=== PATIENT | female | born 1970 | race Caucasian/White ===

== ENCOUNTER 2024-03-25 05:30 | Day surgery (SDC) | payer OTHER ==
[2024-03-23 08:49] LABS: HEMATOCRIT 38.7 % (36.0-45.00); HEMOGLOBIN 13.6 g/dL (12.0-15.00); MEAN CELL VOLUME 92.3 fL (80.00-100.00); MEAN CORPUSCULAR HEMOGLOBIN 32.4 pg (27.00-32.0); MEAN CORPUSCULAR HGB CONC 35.1 g/dl (32.0-36.0); PLATELET COUNT 284 K/uL (150-450); RED BLOOD COUNT 4.19 M/uL (4.00-6.00); RED CELL DISTRIBUTION WIDTH 12.8 % (11.5-14.5)
[2024-03-23 08:50] LABS: URINE APPEARANCE Clear; URINE BILIRRUBIN Negative (NEGATIVE); URINE BLOOD Negative; URINE COLOR Yellow; URINE GLUCOSE Negative (NEGATIVE); URINE LEUKOCYTE Moderate; URINE NITRATE Negative; URINE PROTEIN Negative (NEGATIVE); URINE UROBILINOGEN 0.2 E.U./dl
[2024-03-23 08:54] LABS: URINE EPITHELIAL CELLS 38.7 uL (0.0-38.8); URINE RBC 14.6 uL (0.0-20.8)
[2024-03-23 09:04] LABS: INR 0.98; PARTIAL THROMBOPLASTIN TIME 31.8 SECONDS (22.0-34.0); PROTHROMBIN TIME 10.3 SECONDS (9.0-11.5)
[2024-03-23 09:15] LABS: BILIRUBIN TOTAL 1.44 mg/dL (0.3-1.2); CALCIUM 9.2 mg/dL (8.5-10.1); CREATININE SERUM 0.55 mg/dL (0.55-1.02); GFR 114.75; GLOBULINA 3.5 G/DL (2.4-3.5); POTASSIUM 4.76 mEq/L (3.5-5.1); TOTAL PROTEIN 7.5 gm/dL (6.4-8.2)
[~2024-03-25 05:30] MED LIST: ESCITALOPRAM 10MG; NABUMETONE500 MG PO; ROBITUSSIN COU PO; SYNTHROID88 MCG PO; TOPROL XL50 M1; TRAMADOL HCL50 MG PO
[2024-03-25] MEDS ORDERED: CEFAZOLIN SODIUM 1,000 MG VIAL ONE (08:24)
[2024-03-25] MEDS ORDERED: POVIDONE-IODINE 118 ML BOTT TOP ONE (08:43)
[2024-03-25] MEDS ORDERED: POVIDONE-IODINE SCRUB 118 ML BOTT TOP SCH (09:15)
[2024-03-25] MEDS ORDERED: CEFAZOLIN SODIUM 1,000 MG VIAL IV SCH (09:15)
[2024-03-25] MEDS ORDERED: RACEPINEPHRINE HCL 0.5 ML AMPUL IH ONE ×3 (10:39→22:25)
[2024-03-25] MEDS ORDERED: ALBUTEROL SULFATE 3 ML/2.5 MG AMPUL.NEB IH ONE ×2 (10:39→20:40)
[2024-03-25 10:54] LABS: ABG PH 7.299 (7.35-7.45); ABG PO2 119.6 mmHg (80-100); BASE EXCESS -2.2 mmol/l; BICARBONATE 24.9 mmol/l (23-25); SaO2 98.1 %; Tco2 26.5 mmol/l; allen test SATISFACTORY; o2 40 %; puncture site RADIAL RIGHT
[2024-03-25] MEDS ORDERED: FUROsemide 20 MG/2 ML VIAL IV ONE (15:00)
[2024-03-25] MEDS ORDERED: FUROsemide 20 MG/2 ML VIAL ONE (15:48)
[2024-03-25 16:32] LABS: ABG PH 7.443 (7.35-7.45); ABG PO2 247.4 mmHg (80-100); ABG pCO2 40.2 mmHg (35-45); BASE EXCESS 2.7 mmol/l; BICARBONATE 26.9 mmol/l (23-25); SaO2 99.9 %; Tco2 28.2 mmol/l
[2024-03-25 16:51] LABS: allen test SATISFACTORY; o2 40 %; puncture site RADIAL RIGHT
[2024-03-25] MEDS ORDERED: ALBUTEROL SULFATE 3 ML/2.5 MG AMPUL.NEB IH SCH ×2 (20:00)
[2024-03-25] MEDS ORDERED: CELECOXIB 200 MG CAPSULE PO SCH (21:00)
[2024-03-25] MEDS ORDERED: METHYLPREDNISOLONE SOD SUCC 40 MG VIAL IV ONE (21:00)
[2024-03-25] MEDS ORDERED: RINGERS SOLUTION,LACTATED 1,000 ML IV SCH (21:30)
[2024-03-25] MEDS ORDERED: METHYLPREDNISOLONE SOD SUCC 125 MG VIAL ONE (21:38)
[2024-03-26] MEDS ORDERED: CELECOXIB 200 MG CAPSULE PO SCH (09:00)
== END 2024-03-26 08:30 | disposition home or self-care (01) ==
LOC: CIR.AMB 05:30
PROVIDERS: Anesthesiology; ATTEND Obstetrics & Gynecology
DX: N95.0 Postmenopausal bleeding (principal); N80.03 Adenomyosis of the uterus; I10 Essential (primary) hypertension

== ENCOUNTER 2025-08-24 09:57 | Emergency (ER) | payer OTHER ==
[~2025-08-24] VITALS: Ht 165.1 cm; Wt 67.1 kg
[2025-08-24] MEDS ORDERED: 0.9 % SODIUM CHLORIDE 1,000 ML IV STA (11:36)
[2025-08-24] MEDS ORDERED: MINERAL OIL 30 ML BLIST.PACK PO ONE (11:45)
[2025-08-24] MEDS ORDERED: MAGNESIUM HYDROXIDE 400 MG/5 ML ML PO ONE (11:45)
[2025-08-24] MEDS ORDERED: ONDANSETRON HCL 2 MG/ML VIAL IV ONE (11:45)
[2025-08-24] MEDS ORDERED: LACTULOSE 20 G/30 ML BLIST.PACK PO ONE (11:45)
[2025-08-24] MEDS ORDERED: FAMOTIDINE/PF 20 MG/2 ML VIAL IV ONE (11:45)
[2025-08-24] MEDS ORDERED: KETOROLAC TROMETHAMINE 15 MG VIAL IU ONE (11:45)
[2025-08-24] MEDS ORDERED: KETOROLAC TROMETHAMINE 30 MG VIAL ONE (12:13)
[2025-08-24] MEDS ORDERED: ONDANSETRON HCL 2 MG/ML VIAL ONE (12:13)
[2025-08-24] MEDS ORDERED: MINERAL OIL 30 ML BLIST.PACK ONE (12:14)
[2025-08-24] MEDS ORDERED: FAMOTIDINE/PF 20 MG/2 ML VIAL ONE (12:14)
[2025-08-24] MEDS ORDERED: MAGNESIUM HYDROXIDE 30 ML BLIST.PACK PO ONE (12:14)
[2025-08-24] MEDS ORDERED: BARIUM SULFATE 450 ML ORAL.SUSP PO ONE (12:36)
[2025-08-24 12:49] LABS: BASO % 0.7 % (0.1-1.2); EOS # 0.15 (0.04-0.54); EOS % 2.6 % (0.7-7.0); LYMPH # 1.91 (1.18-3.74); LYMPH % 32.6 % (19.3-53.1); MEAN PLATELET VOLUME 9.50 fl (9.4-12.4); MONO # 0.40 (0.24-0.82); MONO % 6.8 % (4.7-12.5); NEUT # 3.34 (1.56-6.13); NEUT % 57.1 % (34.0-71.1); RED CELL DISTRIBUTION WIDTH 11.9 % (11.6-14.4)
[2025-08-24 13:11] LABS: INR 0.98
[2025-08-24 13:30] LABS: ALT/SGPT 40.0 U/L (12-78); AST/SGOT 25.0 U/L (15-37); BILIRUBIN TOTAL 1.27 mg/dL (0.3-1.2); BILIRUBIN,CONJUGATED 0.31 mg/dL (0.0-0.2); BUN CREA RATIO 23.0 (7.0-25.0); CREATININE SERUM 0.81 mg/dL (0.55-1.02); GFR 73.14; GLUCOSE FASTING 91.0 mg/dL (65-100); OSMOLALITY SERUM 283.0 MOSM/KG (275-295)
[2025-08-24 15:06] LABS: URINE APPEARANCE Clear; URINE BILIRRUBIN Negative (NEGATIVE); URINE BLOOD Negative; URINE COLOR Yellow; URINE GLUCOSE Negative (NEGATIVE); URINE KETONE Negative (NEGATIVE); URINE LEUKOCYTE Moderate; URINE NITRATE Negative; URINE PROTEIN Negative (NEGATIVE); URINE UROBILINOGEN 0.2 E.U./dl
[2025-08-24 15:09] LABS: URINE BACTERIA 93.5 uL (0.0-1933); URINE EPITHELIAL CELLS 3.6 uL (0.0-38.8); URINE RBC 5.4 uL (0.0-20.8); URINE WBC 63.8 uL (0.0-23.2)
[2025-08-24 15:11] LABS: URINE CAST 0.14 uL (0.0-1.40)
[2025-08-24] MEDS ORDERED: SIMETHICONE80 MG PO (20:54)
[2025-08-24] MEDS ORDERED: STOOL SOFTENER50 MG PO (20:54)
[2025-08-24] MEDS ORDERED: PEPCID AC20 MG PO (20:54)
[2025-08-24] MEDS ORDERED: INTESTINEX680 M1 PO (20:54)
== END 2025-08-24 21:05 | disposition home or self-care (01) ==
LOC: ER 09:57
PROVIDERS: General Practice
DX: K59.00 Constipation, unspecified (principal); K76.89 Other specified diseases of liver; I10 Essential (primary) hypertension; E03.9 Hypothyroidism, unspecified